=== PATIENT | female | born 1970 ===

== ENCOUNTER 2021-03-05 05:29 | Day surgery (SDC) | payer OTHER ==
[~2021-03-05 05:29] MED LIST: CALTRATE PO; CARAFATE PO; LEXAPR PO; PEPCID AC20 MG PO; PROTONIX40 MG PO; RESTORIL30 M1 PO
[2021-03-05] MEDS ORDERED: MACROBID 100 M100 MG PO (09:07)
[2021-03-05] MEDS ORDERED: ULTRACET PO (09:08)
== END 2021-03-05 10:52 | disposition home or self-care (01) ==
LOC: CIR.AMB 05:29
PROVIDERS: ATTEND Obstetrics & Gynecology Gynecology
DX: N39.3 Stress incontinence (female) (male) (principal); Z20.822 Contact with and (suspected) exposure to COVID-19
CPT/HCPCS: 57288; C1771